=== PATIENT | male | born 1955 | race Caucasian/White ===

== ENCOUNTER 2020-01-12 12:05 | Emergency (ER) | payer OTHER, SELFPAY ==
[2020-01-12] VITALS (10 sets, daily range): BP systolic 107–145; BP diastolic 57–84; PULSE 57–74; RESP 15–22; TEMP 36.6; O2SAT 95–99; BMI 29.7
--- NOTE | 2020-01-12 12:12 | DI.CT.S_ITS ---
PROCEDURE: CT HEAD/BRAIN WO CON INDICATIONS: syncope/trauma TECHNIQUE: Noncontrast 4.5 mm thick angled axial sections acquired from the foramen magnum to the vertex, with coronal and sagittal reformats. For radiation dose reduction, the following was used: automated exposure control, adjustment of mA and/or kV according to patient size. COMPARISON: None. FINDINGS: Image quality: Excellent. CSF spaces: Basal cisterns are patent. No extra-axial fluid collections. Ventricles are normal in size and shape. Brain: No intracranial hemorrhage, mass, or mass effect. Leiva-white matter interface appears preserved. Skull and face: Calvarium and visualized facial bones are intact, without suspicious lesions. Sinuses: Visualized sinuses and mastoids are clear. IMPRESSION: 1. No acute intracranial abnormality. Dictated by: Seth Mejias M.D. on 01/12/2020 at 12:23 Approved by: Seth Mejias M.D. on 01/12/2020 at 12:24
--- NOTE | 2020-01-12 12:12 | DI.RAD.S_ITS ---
PROCEDURE: XR CHEST 1V INDICATIONS: syncope TECHNIQUE: One view of the chest was acquired. COMPARISON: None. FINDINGS: Surgical changes and devices: None. Lungs and pleura: No consolidative opacity. Subtle density in the right suprahilar region. This could represent a bronchus en fosse with overlapping costal cartilage or pulmonary nodule. No pleural effusions or pneumothorax. Mediastinum: Mediastinal contours appear normal. Heart size is within normal limits. Bones and chest wall: No suspicious bony lesions. Overlying soft tissues appear unremarkable. IMPRESSION: No acute cardiopulmonary abnormality. Question of pulmonary nodule in the right suprahilar region. -consider further evaluation with CT of the chest. Dictated by: Isaiah Marie M.D. on 01/12/2020 at 13:10 Approved by: Isaiah Marie M.D. on 01/12/2020 at 13:13
[2020-01-12 12:46] LABS: Add Manual Diff / Slide Review NO; Basophils Absolute Auto 0 /uL (0-100); Basophils Percent Auto 0.4 % (0-2); Eosinophils Absolute Auto 0 /uL (0-450); Eosinophils Percent Auto 0.5 % (2-4); Hematocrit 43.4 % (41-53); Hemoglobin 14.8 g/dL (13.5-17.5); Lymphocytes Absolute Auto 1000 /uL (1100-4500); Mean Corpuscular Hemoglobin 32.2 PG (26-34); Mean Corpuscular Volume 94.7 fL (80-100); Monocytes Absolute Auto 400 /uL (0-900); Monocytes Percent Auto 3.6 % (3-14); Neutrophils Absolute Auto 8700 /uL (1500-7000); Neutrophils Percent Auto 85.5 % (50-75); Platelet Count 190 X10^3/uL (150-400); Red Blood Cell Count 4.59 X10^6/uL (4.5-5.9); Red Cell Distribution Width 14.1 % (11.6-14.8); White Blood Cell Count 10.2 X10^3/uL (4.5-11.0)
[2020-01-12 12:51] LABS: Alanine Aminotransferase 43 IU/L (<50); Albumin 4.2 g/dL (3.5-5.0); Albumin Globulin Ratio 1.5 (1.0-2.8); Alkaline Phosphatase 68 U/L (38-126); Aspartate Aminotransferase 42 IU/L (17-59); BUN Creatinine Ratio 15.8 (6-22); Bilirubin Total 0.6 mg/dL (0.2-1.3); Blood Urea Nitrogen 18 mg/dL (9-20); Carbon Dioxide 27 mmol/L (22-32); Chloride 103 mmol/L (98-107); Estimated Glomerular Filt Rate > 60.0 mL/min (>60); Globulin 2.8 g/dL (1.7-4.1); Glucose 110 mg/dL (80-110); HEMOLYSIS < 15 (0-50); Lipase 66 U/L (23-300); Sodium 137 mmol/L (137-145)
[2020-01-12 13:03] LABS: NT-proBNP (BNP-Adult 18+) 32 pg/mL (<125); Troponin I < 0.012 ng/mL (0.01-0.034)
--- NOTE | 2020-01-12 14:31 | ED.GENADULT ---
HPI - General Adult General Chief complaint: Syncope Stated complaint: Syncope Time Seen by Provider: 01/12/20 12:11 Source: patient Mode of arrival: EMS Limitations: no limitations History of Present Illness HPI narrative: 64-year-old gentleman with a history of inflammatory bowel disease(rectal involvement), was at home working via [employer] and had a syncopal episode landing on the floor sustaining small laceration to the left side of his eye. He states that yesterday he had quite a few fresh figs from some vague trees across the street and this morning he was experiencing severe abdominal cramping and mild amount of diarrhea. Of note his had similar number of figs and is asymptomatic. He is speculating that the severity of the abdominal cramping caused him to bend over possibly have a syncopal episode that he fell off his chair and clearly had a concussion with significant loss of consciousness. The client's with whom he was speaking via [employer] [place] activated 911. The next Joe remembers he was in his bed recognize that he had blood all over his pillow his told him 911 was coming. The next he remembers he was on the floor by the front door. On arrival in the emergency department he continues to have waxing and waning level of consciousness with continued amnesia and is taken immediately to the CT scanner He states that he was in his usual state of health up until this event happened. He describes no recollection of chest pain, dyspnea, diaphoresis, fevers, coughing Related Data Previous Rx's Medication Instructions Recorded ondansetron 4 mg PO Q6H PRN #20 tab 01/12/20 Allergies Allergy/AdvReac Type Severity Reaction Status Date / Time theophylline Allergy Verified 01/12/20 12:14 Review of Systems Review of Systems Narrative: Pertinent positive and negative findings as per HPI Remainder of review of systems is otherwise unremarkable for Constitutional: Fevers, chills, weakness ENT: No sore throat, neck pain, ear pain CV: Chest pain, palpitations, dyspnea on exertion Respiratory: Cough, wheeze, dyspnea GI: Nausea, vomiting : Dysuria, hematuria, flank pain MS: Muscle weakness, numbness, joint swelling or warmth Skin: Rashes, nonhealing lesions Neuro: Syncope, dizziness, tingling Patient History Medical History Inflammatory bowel disease (ulcerative colitis) (Acute) Social History Smoking Status: Unknown if ever smoked Smoking Status: Unknown if ever smoked alcohol intake frequency: holidays/special occasions only Substance Use Type: does not use Exam Narrative Exam Narrative: General: Healthy appearing, in no acute distress. Able to give a complete and coherent history. Well-nourished well-developed, still retrograde amnesia around much of the event HEENT: Moist mucous membranes, normal sclera with reactive pupils, 1.5 cm angled laceration at the edge of the left eye with mild hematoma but minimal abrasion. Moderate hematoma and abrasion to the left posterior parietal section of his head Neck: supple, no tenderness with palpation along cervical spine Respiratory: Lungs are clear to auscultation, no wheezing no rales no rhonchi. Full and symmetrical air movement Cardiac: Regular rate and rhythm no murmurs no bruits Abdomen: Soft nontender, slightly hyperactive bowel tones, no flank pain Skin: Warm and dry, no rashes Neurologic: Grossly neurologically intact with no obvious asymmetries or abnormalities Extremities: No trauma, well perfused Psych: Cooperative, appropriate insight and affect Initial Vital Signs Initial Vital Signs: Vital Signs Temperature 97.9 F 01/12/20 12:10 Pulse Rate 57 L 01/12/20 12:10 Respiratory Rate 15 01/12/20 12:10 Blood Pressure 107/57 L 01/12/20 12:10 Pulse Oximetry 99 01/12/20 12:10 Course Orders Ordered: ED Orders 01/12/20 12:12 CT head/brain wo con Stat XR chest 1V Stat EKG-12 Lead Stat 01/12/20 12:29 Complete Blood Count AUTO DIFF Stat Comprehensive Metabolic Panel Stat Lipase Stat Magnesium Stat NT-proBNP (BNP-Adult 18+) Stat Troponin I Stat Discontinued Medications Bacitracin (Bacitracin) 5 applic TOP NOW ONE Stop: 01/12/20 14:32 Last Admin: 01/12/20 14:49 Dose: 5 applic Documented by: NIR Lidocaine/Sodium Bicarbonate (Buffered Lidocaine 10 Ml Syr) 10 ml INJ NOW ONE Stop: 01/12/20 14:32 Last Admin: 01/12/20 14:49 Dose: 10 ml Documented by: NIR Ondansetron HCl (Zofran) 4 mg IV NOW ONE Stop: 01/12/20 12:42 Last Admin: 01/12/20 14:06 Dose: Not Given Documented by: SANTIAGO Vital Signs Vital signs: Vital Signs - 8 hr 01/12/20 12:10 01/12/20 12:44 01/12/20 13:00 Temperature 97.9 F Pulse Rate 57 L 60 62 Respiratory Rate 15 19 Blood Pressure 107/57 L Pulse Oximetry 99 98 97 01/12/20 13:01 01/12/20 13:30 01/12/20 13:31 Temperature Pulse Rate 61 67 65 Respiratory Rate 16 17 Blood Pressure 141/81 H 145/76 H Pulse Oximetry 97 96 97 01/12/20 14:00 01/12/20 14:30 01/12/20 15:00 Temperature Pulse Rate 71 70 Respiratory Rate 15 21 17 Blood Pressure 132/81 130/81 137/84 Pulse Oximetry 95 96 97 01/12/20 15:15 Temperature Pulse Rate 74 Respiratory Rate 22 Blood Pressure Pulse Oximetry 98 Medical Decision Making Medical Records Medical records reviewed: Yes I reviewed the patient's medical records. Lab Data Lab results reviewed: Yes I reviewed the patient's lab results. Result diagrams: 01/12/20 12:29 01/12/20 12:29 Labs: Lab Results 01/12/20 01/12/20 01/12/20 Range/Units 12:29 12:29 12:29 WBC 10.2 (4.5-11.0) X10^3/uL RBC 4.59 (4.5-5.9) X10^6/uL Hgb 14.8 (13.5-17.5) g/dL Hct 43.4 (41-53) % MCV 94.7 (80-100) fL MCH 32.2 (26-34) PG MCHC 34.0 (30-36) % RDW 14.1 (11.6-14.8) % Plt Count 190 (150-400) X10^3/uL Neut % (Auto) 85.5 H (50-75) % Lymph % (Auto) 10.0 L (25-40) % [place] % (Auto) 3.6 (3-14) % Eos % (Auto) 0.5 L (2-4) % Baso % (Auto) 0.4 (0-2) % Neut # (Auto) 8700 H (6105-7647) /uL Lymph # (Auto) 1000 L (5230-1243) /uL [place] # (Auto) 400 (0-900) /uL Eos # (Auto) 0 (0-450) /uL Baso # (Auto) 0 (0-100) /uL Sodium 137 (137-145) mmol/L Potassium 4.0 (3.4-5.1) mmol/L Chloride 103 (98-107) mmol/L Carbon Dioxide 27 (22-32) mmol/L BUN 18 (9-20) mg/dL Creatinine 1.14 (0.66-1.25) mg/dL Estimated GFR > 60.0 (>60) mL/min BUN/Creatinine Ratio 15.8 (6-22) Glucose 110 (80-110) mg/dL Calcium 9.0 (8.4-10.2) mg/dL Magnesium 2.0 (1.6-2.3) mg/dL Total Bilirubin 0.6 (0.2-1.3) mg/dL AST 42 (17-59) IU/L ALT 43 (<50) IU/L Alkaline Phosphatase 68 (38-126) U/L Troponin I < 0.012 (0.01-0.034) ng/mL NT-Pro-B Natriuret Pep 32 (<125) pg/mL Total Protein 7.0 (6.3-8.2) g/dL Albumin 4.2 (3.5-5.0) g/dL Globulin 2.8 (1.7-4.1) g/dL Albumin/Globulin Ratio 1.5 (1.0-2.8) Lipase 66 (23-300) U/L Imaging Data CT scan - head: Radiologist's Impression: IMPRESSION: 1. No acute intracranial abnormality. Dictated by: Seth Mejias M.D. on 01/12/2020 at 12:23 ECG Data Attestation: I personally reviewed and interpreted this ECG as follows: Interpretation: Sinus rhythm at a rate of 55 Normal intervals, normal axis No acute ST T wave changes MDM Narrative Medical decision making narrative: 64-year-old gentleman with syncopal episode that led to him falling off a chair and sustaining significant concussion with small laceration to the left side of his eye. In lead if his ulcerative colitis and multiple figs eaten the night prior he believes that the severe abdominal cramping was the inciting event. Labs exam and additional workup do not suggest otherwise. Specifically there is no indication of myocardial infarction, palpitations or arrhythmia,pulmonary embolism or infection to suggest otherwise. Memory is returning but he still has some retrograde amnesia. Significant concussion and I will give him information on postconcussion syndrome. Will need sutures removed in 7-10 days. He is safe for home discharge Discharge Plan Departure Patient Disposition: Home Clinical Impression: Vasovagal syncope, Laceration Concussion Qualifiers: Encounter type: initial encounter Loss of consciousness presence/duration: with LOC of unspecified duration Qualified Code(s): S06.0X9A - Concussion with loss of consciousness of unspecified duration, initial encounter Discharge Date/Time: 01/12/20 15:29 Instructions: DI for Laceration Repair -- Simple, DI for Postconcussion Syndrome Activity Restrictions/Additional Instructions: Thank you for coming in today A very disconcerting afternoon to say the least. Your workup was very reassuring. Specifically I found no evidence of bleeding inside your head. In looking for explanations as to why you may have had the syncopal episode, there is no evidence of a heart attack, a stroke, acute infection, pulmonary embolism or other life-threatening event. I believe your explanation of the severe abdominal cramps probably makes the most sense Please read the instructions on post concussion syndrome. You do have a significant concussion. For nausea it is okay to use Zofran (I have given you a prescription) to fill and Tylenol can be helpful with the general aches and pains. I strongly recommend that you cancel the rest of your week's clinical care and allow your brain to rest. The laceration to the left side of your I came together nicely with the sutures. Need to have the suture removed on or about January 18 I encourage you to follow-up with a primary care physician I recommended Dr. Jack Carias with [facility]. I encourage you to schedule a follow-up appointment for the concussion in approximately a week. Prescriptions: New ondansetron 4 mg tablet,disintegrating 4 mg PO Q6H PRN (Reason: nausea and vomiting) Qty: 20 RF: 0 Referrals: Jack Carias MD [Physician] -
[2020-01-12] MEDS: BACITRACIN OINT 0.9 GM PCKT 5 APPLIC TOP (14:49)
[2020-01-12] MEDS: LIDO 1%/SOD BICARB 8.4% (10ML) 10 ML SYRINGE INJ (14:49)
== END 2020-01-12 15:29 | disposition home or self-care (01) ==
PROVIDERS: Emergency Provider Emergency Medicine
DX: R55 Syncope and collapse (principal); S06.0X9A Concussion with loss of consciousness of unspecified duration, initial encounter; S01.81XA Laceration without foreign body of other part of head, initial encounter
CPT/HCPCS: 36415; 70450; 71045; 80053; 83690; 83735; 83880; 84484; 85025; 93005; 99283; 99284